=== PATIENT | female | born 1935 | race Caucasian/White ===

== ENCOUNTER 2017-02-19 13:53 | Emergency (ER) | payer MEDICARE ==
[~2017-02-19] VITALS: Ht 160 cm; Wt 63.2 kg
[~2017-02-19 13:53] MED LIST: ACET50TA PO; AMLO10TA2 PO; ASCO25TA PO; ASPI81TA60 PO; COUM1TAB19 PO; COUM2.5T17 PO; DOCU10CA PO; FELO10TA PO; FERG1TAB PO; LABE10TAB PO; LASI20TA PO; LIPI10TA PO; MILKSUS PO; MIRA3350 PO; PROT1TAB2 PO; SENO8.6T5 PO; TERA2CAP3 PO; TRAM50TA2 PO; ULTR50TA8 PO; VALS1TAB47 PO
[2017-02-19 13:54] VITALS: BP 150/75
[2017-02-19] MEDS ORDERED: AMLO5TAB2 (14:16)
[2017-02-19] MEDS ORDERED: PERCOCET 5MG/325MG TAB PO ONE (14:45)
[2017-02-19] MEDS ORDERED: PERC5TAB12 PO (14:53)
--- NOTE | 2017-02-19 17:09 | REP ---
Right humerus: Two views. History: Right upper arm pain in a injury in a fall. Findings: There is a severely comminuted fracture of the proximal humeral diaphysis and surgical neck greater tuberosity region. There is some medial displacement measuring 7 mm in slight override of the major fragments. Glenohumeral articulation is normally aligned. There is chondrocalcinosis and some dystrophic calcification is seen in the periarticular soft tissues. Diffuse osteopenia is noted. Impression: Comminuted surgical neck and proximal and diaphyseal fracture right humerus with mild medial displacement and override. Signed by Sudheer Minaya MD 02/19/2017 05:01 P
== END 2017-02-19 15:39 | disposition home or self-care (01) ==
LOC: M ED 13:53
DX: S42.211A Unspecified displaced fracture of surgical neck of right humerus, initial encounter for closed fracture (principal); W00.0XXA Fall on same level due to ice and snow, initial encounter; Y92.018 Other place in single-family (private) house as the place of occurrence of the external cause; Y93.89 Activity, other specified; Y99.8 Other external cause status; I10 Essential (primary) hypertension; Z79.899 Other long term (current) drug therapy; Z88.1 Allergy status to other antibiotic agents; Z88.2 Allergy status to sulfonamides